=== PATIENT | male | born 1960 ===

== ENCOUNTER 2023-02-04 08:35 | Emergency (ER) | payer BC ==
--- OUTSIDE RECORDS SUMMARY | 2023-02-04 08:41 | XMS REPORT | Continuity of Care Document ---
:1960 [facility] t Address [address] [place] [address] [place] [id number] Care Team Providers Name Role Phone Aneudy Mills MD Primary Care Physician ERLINDA Attending Clinician Unavailable SWATI BLUM Attending Clinician Unavailable ANEUDY MILLS Attending Clinician Unavailable Nick Pineda Attending Clinician [phone] LENA JOHNSON M.D. Attending Clinician Unavailable ERLINDA Admitting Clinician Unavailable Payers Payer Name Policy Type Policy Number Effective Date Expiration Date S jameson BC-[place]: ISSA [id number] 2019 OPTIONS (PPO) 00:00:00 Problems Condition Condition Condition Status Onset Resolution Last Treating Co mments Source Name Details Category Date Date Treatment Clinician Date Chronic Chronic Problem Active 2020-07 [facility] neck pain Neck Pain 1-08 Comm uni for for 00:00: ty greater Greater 00 Hospita than 3 than 3 l months Months Clinics Hyperchole Hyperchole Problem Active 2020-07 [facility] sterolemia sterolemia 0-07 [facility] 00:00: ty 00 Hospita l Clinics Osteoarthr Osteoarthr Problem Active [facility] itis of itis of 8-19 Communi knee Knee 00:00: ty 00 Hospita l Clinics Pain in Pain in Problem Active [facility] left knee Left Knee 6-26 Comm uni 00:00: ty 00 [facility]osp[facility] Clinics Benign Benign Problem Active [facility] prostatic Prostatic 5-22 Comm uni hyperplasi Hyperplasi 00:00: ty a a 00 Hospita l Clinics Secondary Secondary Problem Active [facility] erectile Erectile 5-22 Commun i dysfunctio Dysfunctio 00:00: ty n n [facility] Clin[facility] Acute pain Acute pain Problem Active [facility] of right of right Physic i shoulder shoulder ans Strain of Strain of Problem Active [facility] muscle, muscle, Physici fascia and fascia and an s tendon of tendon of long head long head of biceps, of biceps, right arm, right arm, subsequent subsequent encounter encounter Primary Primary Problem Active [facility] osteoarthr osteoarthr Ph ysici itis of itis of ans right right shoulder shoulder Allergies, Adverse Reactions, Alerts Allergy Allergy Status Severity Reaction(s) Onset Inactive Treating Comm ents Source Name Type Date Date Clinician Metronid Propensi Active Itching Metho di azole ty to 08-02 st adverse 00:00: Hospita reaction 00 l s to drug Flagyl Allergy Active [facility] to Communi substanc ty e [facility] Clin[facility] Family History Family Member Diagnosis Comments Start Date Stop Date Source Natural father [facility] Natural mother [facility] Social History Social Habit Start Date Stop Date Quantity Comments Source Gender identity [facility] Tobacco use and 2021-08-02 2021-08-02 Smokeless [facility] exposure 00:00:00 00:00:00 tobacco non-user [facility] Alcohol intake 2021-08-02 2021-08-02 Lifetime [facility] 00:00:00 00:00:00 non-drinker Hospital (finding) History of Social 2021-08-02 2021-08-[address] function 00:00:00 00:00:00 [facility] Sex Ass[birth year] At [birth year] [facility] 00:00:00 00:00:00 Hospital Smoking Status Start Date Stop Date Source Never smoked tobacco [facility] Medications Ordered Filled Start Stop Current Ordering Indication Dosage Frequency Signature Comments Components Source Medication Medication Date Date Medication? Clinician (SIG) Name Name Multi Multi No Multi [facility] Vitamin 1 Vitamin 1 Vitamin 1 Communi po qd po qd po qd ty [facility] sildenafil sildenafil No 1 Q1D sildenafil [facility] 50 mg 50 mg 50 mg Communi tablet Take tablet Take tablet ty 1 tablet 1 tablet Take 1 Hospi ta every day every day tablet l by oral by oral every day Clin ics route as route as by oral needed. needed. route as needed. Multi Multi No Multi [facility] Vitamin 1 Vitamin 1 Vitamin 1 Communi po qd po qd po qd ty Hospita l Clinics sildenafil sildenafil No 1 Q1D sildenafil [facility] 50 mg 50 mg 50 mg Communi tablet Take tablet Take tablet ty 1 tablet 1 tablet Take 1 Hospi ta every day every day tablet l by oral by oral every day Clin ics route as route as by oral needed. needed. route as needed. Immunizations Ordered Immunization Filled Immunization Date Status Commen ts Source Name Name SARS-COV-2 SARS-COV-2 2020-10-27 Completed [facility] Communi ty (COVID-19) vaccine, (COVID-19) vaccine, 00:00:00 Hospital Clinics UNSPECIFIED UNSPECIFIED SARS-COV-2 SARS-COV-2 2020-10-27 Completed [facility] Communi ty (COVID-19) vaccine, (COVID-19) vaccine, 00:00:00 Hospital Clinics UNSPECIFIED UNSPECIFIED SARS-COV-2 SARS-COV-2 2020-09-29 Completed [facility] Communi ty (COVID-19) vaccine, (COVID-19) vaccine, 00:00:00 Hospital Clinics UNSPECIFIED UNSPECIFIED SARS-COV-2 SARS-COV-2 2020-09-29 Completed [facility] Communi ty (COVID-19) vaccine, (COVID-19) vaccine, 00:00:00 Hospital Clinics UNSPECIFIED UNSPECIFIED Vital Signs Vital Name Observation Time Observation Value Comments Source BP Diastolic 2021-05-16 80 mm[Hg] [facility] y 00:00:00 Hospital Clinic s Height 2021-05-16 72 [in_i] [facility] 00:00:00 [facility] Clinic s BMI (Body Mass 2021-05-16 26.7 kg/m2 [facility] Commun ity Index) 00:00:00 Hospital Clinic s BP Systolic 2021-05-16 122 mm[Hg] [facility] 00:00:00 [facility] Body Weight 2021-05-16 3152 [oz_av] [facility] y 00:00:00 Hospital Clinic s BP Diastolic 2021-04-14 72 mm[Hg] [facility] y 00:00:00 Hospital Clinic s Height 2021-04-14 72 [in_i] [facility] Commun[facility] y 00:00:00 Hospital Clinic s BMI (Body Mass 2021-04-14 25.9 kg/m2 [facility] Index) 00:00:00 Hospital Clinic s BP Systolic 2021-04-14 110 mm[Hg] [facility] y 00:00:00 Hospital Clinic s Body Weight 2021-04-14 3056 [oz_av] [facility] y 00:00:00 Hospital Clinic s BP Systolic 2018-06-14 123 mm[Hg] Location: [facility]; [facility] 15:38:00 Position: Sitting BP Diastolic 2018-06-14 82 mm[Hg] Location: [facility]; [facility] 15:38:00 Position: Sitting Height 2018-06-14 72 [in_us] [facility] 15:38:00 Weight 2018-06-14 185 [lb_av] [facility] 15:38:00 Body Mass Index 2018-06-14 25.09 kg/m2 [facility] 15:38:00 Heart Rate 2018-06-14 69 /min [facility] 15:38:00 Procedures Procedure Date / Time Performing Clinician Source Performed XR, cervical spine, 2 or 3 2021-05-16 00:00:00 S [facility] MR Shoulder w contrast 2018-06-14 00[facility]00:00 [id number] DX Inj Arthrogram Shoulder 2018-06-14 00:00:00 [facility] DX Excision of Lumbar 2013-11-11 00:00:00 [facility] Intervertebral Disc [facility] Cli nics History of Shoulder [facility] Cholecystectomy [facility] Dental Surgery Procedure [facility] Procedure on Shoulder [facility] Plan of Care Planned Activity Planned Date Details Comments Source Future Scheduled Test 2022-12-25 [facility] 10:43:56 malignant neoplasm of colon (procedure) [code = 524584616] Future Scheduled Test 2022-12-25 SHINGLES VACCINES [facility] 10:43:56 (1 of 2) [code = SHINGLES VACCINES (1 of 2)] Future Scheduled Test 2022-12-25 COVID-19 [facility] 10:43:[facility] - Mixed Product series) [code = COVID-19 VACCINE (3 - Mixed Product series)] Future Scheduled Test 2022-12-25 INFLUENZA VACCINE M [facility] 10:43:56 [code = INFLUENZA VACCINE] Future Scheduled Test 2022-12-25 [facility] 10:43:56 malignant neoplasm of colon (procedure) [code = 165359097] Future Scheduled Test 2022-12-25 [facility] 10:43:56 malignant neoplasm of colon (procedure) [code = 109673819] Future Scheduled Test 2022-12-25 [facility] 10:43:56 malignant neoplasm of colon (procedure) [code = 845517713] Future Scheduled Test 2022-12-25 Hepatitis C [facility] 10:43:56 screening (procedure) [code = 510639515] Future Scheduled Test 2022-12-25 [facility] 10:43:56 malignant neoplasm of colon (procedure) [code = 224881242] Diagnostic Test 2021-04-14 PSA, serum or [facility] Comm unity Pending 00:00:00 plasma [code = PSA, Hospital Clinics serum or plasma] Diagnostic Test 2021-04-14 lipid panel, serum [facility] Community Pending 00:00:00 [code = lipid [facility] Clini cs panel, serum] Diagnostic Test 2021-04-14 CBC w/ auto diff [facility] C ommunity Pending 00:00:00 [code = CBC w/ auto Hospital Clinics diff] Diagnostic Test 2021-04-14 CMP, serum or [facility] Comm unity Pending 00:00:00 plasma [code = CMP, Hospital Clinics serum or plasma] Encounters Start End Encounter Admission Attending Care Care Encounter Source Date/Time Date/Time Type Type Clinicians Facility Department ID 2021-08-22 2021-08-22 Outpatient [facility] [id number] [facility] 01:56:00 01:56:00 214 Commun i ty Hospita [facility] 2021-08-02 2021-08-02 Outpatient [facility] [id number] 00:00:00 00:00:00 SWAT[facility] [address] 2021-08-02 2021-08-02 Outpatient [facility] [id number] 00:00:00 00:00:[address] 2021-07-18 2021-07-18 Outpatient [facility] [id number] - [facility] 01:26:00 01:26:00 110 Commun i ty Hospita l Clinics 2021-06-13 2021-06-13 Outpatient [facility] [id number] [facility] 12:58:00 12:58:00 206 Commun i ty Hospita l Clinics 2021-06-10 2021-06-10 Outpatient [facility] [id number] [facility] 02:32:00 02:32:00 203 Commun i ty Hospita l Clinics 2021-06-10 2021-06-10 Outpatient THOMAS [facility] [id number] [place] [address] 00:00:00 00:00:00 ANEUDY [address] 2021-06-10 2021-06-10 Outpatient THOMAS [facility] [id number] [address] [place] [address] 00:00:00 00:00:00 ANEUDY [address] 2021-05-16 2021-05-16 Outpatient [facility] [id number] - [facility] 12:12:00 12:12:00 108 Commun i ty Hospita l Clinics 2021-05-16 2021-05-16 Outpatient Devorah, [facility] [id number] 00:00:00 00:00:00 Nick [id number] Manuel [id number] 2021-05-16 2021-05-16 Nick [facility] [place] - [facility] [id number] [facility] 00:00:00 00:00:00 [facility] DO: [address] Hospit a [facility] l [address], HOSPITAL Clinic s [facility], [place] [facility], [address] DEVORAH , Ph. 2021-04-14 2021-04-14 Outpatient [facility] [id number] [facility] 09:42:00 09:42:00 007 Commun i ty Hospita l Clinics 2021-04-14 2021-04-14 Nick [facility] [place] - [facility] 07 [facility] 00:00:00 00:00:00 [facility] DO: [address] Hospit a [facility] [address], [facility], [address] DEVORAH , Ph. [phone] 2021-04-14 2021-04-14 [facility] [id number] 00:00:00 00:00:00 Nick [id number] [place] [id number] 2018-07-24 2018-07-24 DIANA Tinoco UTP [id number] [facility] 15:15:00 15:15:00 t; LENA JOHNSON Orthopedic P hysici MATTHEW, M.D. Surgery - ans [place] [address] [address] 1 2018-06-14 2018-06-14 DIANA Tinoco UTP [id number] [place] 14:45:00 14:45:00 t; LENA JOHNSON Orthopedic Michelle PAREDES M.D. Surgery - ans [place] [address] 1 Results This patient has no known results.
[2023-02-04] MEDS ORDERED: DIAZEPAM 5 MG TABLET ONE (09:05)
--- NOTE | 2023-02-04 09:05 | ER ---
Nurse's Notes [facility] Name: Chun Howard Age: 62 yrs Sex: Male : 1960 Arrival Date: 02/04/2023 Time: 08:35 Bed 18 Private MD: Diagnosis: Low back pain Presentation: 02/04 08:44 Chief complaint: Patient states: Back pain after moving bricks yesterday. Coronavirus ll1 screen: Vaccine status: Patient reports receiving the 2nd dose of the covid vaccine. Client denies travel out of the [place] in the last 14 days. At this time, the client does not indicate any symptoms associated with coronavirus-19. Ebola Screen: Patient denies travel to an Ebola-affected area in the 21 days before illness onset. Initial Sepsis Screen: Does the patient meet any 2 criteria? No. Patient's initial sepsis screen is negative. Does the patient have a suspected source of infection? Yes: Bone or joint infection. Risk Assessment: Do you want to hurt yourself or someone else? Patient reports no desire to harm self or others. Onset of symptoms was February 03, 2023. 08:44 Method Of Arrival: Wheelchair ll1 08:44 Acuity: GENE 4 ll1 Triage Assessment: 08:45 General: Appears uncomfortable, Behavior is calm, cooperative, appropriate for age. ll1 Pain: Complains of pain in back Quality of pain is described as aching, throbbing. Musculoskeletal: Circulation, motion, and sensation intact. Capillary refill < 3 seconds, severe back pain. Historical: - Allergies: 08:53 Flagyl; ll1 - PMHx: 08:53 None; ll1 - PSHx: 08:53 back SX, collar bone SX with plates; Cholecystectomy; ll1 - Immunization history:: Adult Immunizations up to date. - Social history:: Smoking status: Patient denies any tobacco usage or history of. Screenin:45 [facility] ED Fall Risk Assessment (Adult) Impaired Gait Yes (1 pt) Mobility Assist ll1 Device Used Yes (1 pt) Score/Fall Risk Level 3 or more points = High Risk Oriented to surroundings, Maintained a safe environment, Educated pt \T\ family on fall prevention, incl call for assistance when getting out of bed, Provided non-skid footwear, Hourly rounding (assess needs \T\ fall precautionary measures) done, Remained with patient while ambulating. Abuse screen: Denies threats or abuse. Nutritional screening: No deficits noted. Tuberculosis screening: No symptoms or risk factors identified. Assessment: 09:33 Reassessment: No changes from previously documented assessment. Patient and/or family hb updated on plan of care and expected duration. Pain level reassessed. Patient is alert, oriented x 3, equal unlabored respirations, skin warm/dry/pink. 09:44 Reassessment: No changes from previously documented assessment. Patient and/or family ll1 updated on plan of care and expected duration. Pain level reassessed. Patient is alert, oriented x 3, equal unlabored respirations, skin warm/dry/pink. Vital Signs: 08:44 BP 139 / 91; Pulse 80; Resp 18; Temp 98; Pulse Ox 100% on R/A; Weight 90.72 kg; Height ll1 5 ft. 11 in. ; Pain 10/10; 09:32 BP 112 / 71; Pulse 78; hb 09:44 BP 115 / 73; Pulse 75; Resp 17; Pulse Ox 100% ; Pain 10/10; ll1 08:44 Body Mass Index 27.89 (90.72 kg, 180.34 cm) ll1 08:44 Pain Scale: Adult ll1 09:44 Pain Scale: Adult ll1 ED Course: 08:38 Patient arrived in ED. ts1 08:38 Chandni Mcgowan FNP-C is [facility]. kb 08:38 Joseph Pérez DO is Attending Physician. kb 08:40 Arm band placed on Patient placed in an exam room, on a stretcher. ll1 08:45 Triage completed. ll1 08:46 Patient has correct armband on for positive identification. Bed in low position. Call ll1 light in reach. Client placed on continuous cardiac and pulse oximetry monitoring. NIBP monitoring applied. 08:53 Storm Soriano, RN is Primary Nurse. ll1 09:44 No provider procedures requiring assistance completed. Patient did not have IV access ll1 during this emergency room visit. 09:45 Provided Education on: n/a. ll1 Administered Medications: 09:02 Drug: Hydrocodone-Acetaminophen PO (7.5 mg-325 mg) 1 tabs {Note: pain 10/10 RASS 0.} ll1 Route: PO; 09:44 Follow up: Response: No adverse reaction; Pain is unchanged, physician notified; RASS: ll1 Alert and Calm (0) 09:02 Drug: Diazepam PO 5 mg {Note: rass 0.} Route: PO; ll1 09:44 Follow up: Response: No adverse reaction; Pain is unchanged, physician notified; RASS: ll1 Alert and Calm (0) 09:03 Drug: Dexamethasone IM 10 mg Route: IM; Site: right gluteus; hb 09:44 Follow up: Response: No adverse reaction ll1 09:04 Drug: Ketorolac IM 30 mg Route: IM; Site: left gluteus; hb 09:44 Follow up: Response: No adverse reaction; Pain is unchanged, physician notified; RASS: ll1 Alert and Calm (0) Medication: 08:46 VIS not applicable for this client. ll1 Outcome: 09:04 Discharge ordered by . kb 09:45 Discharged to home via wheelchair. ll1 09:45 Condition: stable 09:45 Discharge instructions given to patient, Instructed on discharge instructions, follow up and referral plans. no driving heavy equipment, medication usage, Demonstrated understanding of instructions, follow-up care, medications, Prescriptions given X 2. 09:46 Patient left the ED. 1 Signatures: Chandni Mcgowan, DARLENE-C HUMAN RESOURCES PSYCHOLOGIST-Ckb Trudy Adam RN RN Storm Soriano RN RN ll1 Frances Degroot PAS PAS ts1 Corrections: (The following items were deleted from the chart) 08:46 08:44 BP 139 / 91; Pulse 80bpm; Resp 18bpm; Pulse Ox 100% RA; ll1 ll1 08:54 08:44 BP 139 / 91; Pulse 80bpm; Resp 18bpm; Pulse Ox 100% RA; Pain 10/10, Adult; ll1 ll1 09:32 09:32 BP 112 / 71; hb hb 09:34 09:09 Dexamethasone IM 10 mg IM in right gluteus ll1 hb 09:34 09:09 Ketorolac IM 30 mg IM in left gluteus ll1 hb
--- NOTE | 2023-02-04 09:05 | EDPHYS ---
Physician Documentation [facility] Name: Chun Howard Age: 62 yrs Sex: Male : 1960 Arrival Date: 02/04/2023 Time: 08:35 Bed 18 Private MD: ED Physician Joseph Pérez HPI: 02/04 08:59 This 62 yrs old Male presents to ER via Wheelchair with complaints of Back Pain. kb 08:59 The patient presents with pain that is acute. The symptoms are located in the L4 and kb L5. Onset: The symptoms/episode began/occurred yesterday. The pain does not radiate. Associated signs and symptoms: The patient has no apparent associated signs or symptoms, Pertinent negatives: constipation, fever, numbness, tingling, urinary retention, vomiting, weakness. The problem was sustained when lifting from twisting. Modifying factors: The patient symptoms are alleviated by rest, the patient symptoms are aggravated by any movement. Severity of symptoms: At their worst the symptoms were moderate, in the emergency department the symptoms are unchanged. The patient has experienced a previous episode. The patient has not recently seen a physician. Pt reports low back pain that started yesterday after moving bricks. 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 Full ROM of lower extremities, able to ambulate, no urinary retention or constipation, no incontinence. . Historical: - Allergies: 08:53 Flagyl; ll1 - PMHx: 08:53 None; ll1 - PSHx: 08:53 back SX, collar bone SX with plates; Cholecystectomy; ll1 - Immunization history:: Adult Immunizations up to date. - Social history:: Smoking status: Patient denies any tobacco usage or history of. ROS: 08:55 Constitutional: Negative for fever, chills, and weight loss. kb 08:55 Back: Positive for pain at rest, pain with movement, of the L4 and L5. 08:55 All other systems are negative. Exam: 08:55 Constitutional: This is a well developed, well nourished patient who is awake, alert, kb and in no acute distress. Head/Face: Normocephalic, atraumatic. ENT: Moist Mucous membranes Cardiovascular: Regular rate and rhythm with a normal S1 and S2. No gallops, murmurs, or rubs. No pulse deficits. Respiratory: Respirations even and unlabored. No increased work of breathing. Talking in full sentences Abdomen/GI: Soft, non-tender. No distention Skin: Warm, dry with normal turgor. Normal color. MS/ Extremity: Pulses equal, no cyanosis. Neurovascular intact. Full, normal range of motion. Neuro: Awake and alert, GCS 15, oriented to person, place, time, and situation. Moves all extremities. Normal gait. 08:55 Back: pain, that is moderate, of the L4 and L5, ROM is painful, with all movement, normal spinal alignment noted, CVA tenderness, is absent, vertebral tenderness, is not appreciated. 08:55 Neuro: Exam negative for acute changes, focal neuro deficits, motor deficits. Vital Signs: 08:44 BP 139 / 91; Pulse 80; Resp 18; Temp 98; Pulse Ox 100% on R/A; Weight 90.72 kg; Height ll1 5 ft. 11 in. ; Pain 10/10; 09:32 BP 112 / 71; Pulse 78; hb 09:44 BP 115 / 73; Pulse 75; Resp 17; Pulse Ox 100% ; Pain 10/10; ll1 08:44 Body Mass Index 27.89 (90.72 kg, 180.34 cm) ll1 08:44 Pain Scale: Adult ll1 09:44 Pain Scale: Adult ll1 MDM: 08:38 Patient medically screened. kb 08:57 Differential diagnosis: chronic back pain, Fracture ruptured disc, sprain, vertebral kb fracture. Data reviewed: vital signs, nurses notes. Test considered but Not performed: X-ray: lumbar x-ray considered, but pt denies any injury. Counseling: I had a detailed discussion with the patient and/or guardian regarding: the historical points, exam findings, and any diagnostic results supporting the discharge/admit diagnosis, the need for outpatient follow up, a family practitioner, to return to the emergency department if symptoms worsen or persist or if there are any questions or concerns that arise at home. ED course: Discussed CT and x-ray with pt, but that a MRI would be more beneficial without the added radiation exposure. Educated to follow up with PCP for outpatient MRI. Educated on return precautions. Verbal understanding received. . Administered Medications: 09:02 Drug: Hydrocodone-Acetaminophen PO (7.5 mg-325 mg) 1 tabs {Note: pain 10/10 RASS 0.} ll1 Route: PO; 09:44 Follow up: Response: No adverse reaction; Pain is unchanged, physician notified; RASS: ll1 Alert and Calm (0) 09:02 Drug: Diazepam PO 5 mg {Note: rass 0.} Route: PO; ll1 09:44 Follow up: Response: No adverse reaction; Pain is unchanged, physician notified; RASS: ll1 Alert and Calm (0) 09:03 Drug: Dexamethasone IM 10 mg Route: IM; Site: right gluteus; hb 09:44 Follow up: Response: No adverse reaction ll1 09:04 Drug: Ketorolac IM 30 mg Route: IM; Site: left gluteus; hb 09:44 Follow up: Response: No adverse reaction; Pain is unchanged, physician notified; RASS: ll1 Alert and Calm (0) Disposition: 13:38 Co-signature as Attending Physician, Joseph RODRIGUEZ was immediately available on-site ms3 in the Emergency Department for consultation in the care of the patient. Disposition Summary: 02/04/23 09:04 Discharge Ordered Location: Home kb Condition: Stable kb Diagnosis - Low back pain kb Followup: kb - With: Emergency Department - When: As needed - Reason: Worsening of condition Followup: kb - With: Private Physician - When: 2 - 3 days - Reason: Recheck today's complaints, Continuance of care, Re-evaluation by your physician Discharge Instructions: - Discharge Summary Sheet kb - Acute Back Pain, Adult kb - Musculoskeletal Pain kb - Herniated Disk, Mafz-co-Wzod kb Forms: - Medication Reconciliation Form kb - Thank You Letter kb - Antibiotic Education kb - Prescription Opioid Use kb - Patient Portal Instructions kb - Work release form ll1 Prescriptions: - Cyclobenzaprine 10 mg Oral Tablet - take 1 tablet by ORAL route every 8 hours As needed; 21 tablet; Refills: 0, kb Product Selection Permitted - Medrol (Iftikhar) 4 mg Oral Tablets, Dose Pack - take 1 tablet by ORAL route as directed - follow package instructions; 1 kb packet; Refills: 0, Product Selection Permitted Signatures: Chandni Mcgowan FNP-C FNP-Ckb Baxter, Heather, RN RN Storm Soriano RN RN ll1 Pérez, Joseph, DO DO ms3
[2023-02-04] MEDS ORDERED: KETOROLAC 30 MG/ML INJ ONE (09:06)
[2023-02-04] MEDS ORDERED: dexAMETHasone 10 MG/ML VIAL ONE (09:06)
[2023-02-04] MEDS ORDERED: HYDROCODONE/APAP 7.5/325 MG TAB ONE (09:06)
[2023-02-04 09:50] VITALS: TEMP 98; O2SAT 100
[2023-02-04 09:53] VITALS: BP 115/73
== END 2023-02-04 09:46 | disposition home or self-care (01) ==
LOC: ER 08:35
DX: M54.50 Low back pain, unspecified (principal); Z88.1 Allergy status to other antibiotic agents
CPT/HCPCS: 96372; 99284; J1100